=== PATIENT | female | born 1935 | race African-American/Black ===

== ENCOUNTER → 2018-02-25 | Outpatient (CLI) | payer OTHER ==
--- NOTE | 2018-02-25 09:33 | Diagnostic Imaging Report ---
PROCEDURE:US RETROPERITONEAL ( KIDNEY ). COMPARISON:Bilateral renal ultrasound 01/21/17. INDICATIONS:ACQUIRED CYST OF KIDNEY TECHNIQUE:Ultrasound examination was performed of the kidneys and bladder. FINDINGS: RIGHT KIDNEY: 8.9 cm, cortex 1.1 cm No echogenic calculi, hydronephrosis, or solid masses. LEFT KIDNEY: 9.1 cm, cortex 1.3 cm No echogenic calculi, hydronephrosis, or solid masses. Multiple simple appearing renal cysts are present: Right kidney, inferior/lateral, 1.2 x 1.0 x 1.2 cm, minimally increased Right kidney, inferior/lateral, 2.6 x 2 x 1.9, stable Left kidney, interpolar region, 1.5 x 1.1 cm, minimally increased Left kidney, superior pole, 1.7 x 1.4 x 1.8 cm, minimally decreased Bladder: Normal contour. Bilateral ureteral jets are present. CONCLUSION: No acute sonographic abnormality. Bilateral simple renal cysts, similar in appearance to prior study, accounting for differences in technique. DICTATED BY: RAMIRO GARZA M.D. ON 02/25/2018 AT 9:41 ELECTRONICALLY APPROVED BY: RAMIRO GARZA M.D. ON 02/25/2018 AT 9:41
== END ==
LOC: US 07:50
PROVIDERS: ATTEND Urology
DX: N28.1 Cyst of kidney, acquired (principal)
CPT/HCPCS: 76770

== ENCOUNTER → 2019-05-11 | Outpatient (CLI) | payer MEDICARE, OTHER ==
--- NOTE | 2019-05-11 12:17 | Diagnostic Imaging Report ---
EXAM: US RENAL RETROPERITONEAL COMP DATE: 05/11/2019 8:52 AM INDICATION: Cyst of kidney COMPARISON: Ultrasound from 02/25/2018 FINDINGS: The right kidney is at the lower limits of normal for size measuring 8.3 x 4.1 x 4.1 cm with cortical thickness of 1.5 cm. Cortical echogenicity is mildly increased. There are multiple simple cysts. The largest measures 2.5 x 2.0 x 2.2 cm and 1.9 x 1.1 x 1.5 cm. There is no evidence for solid renal mass, hydronephrosis, or shadowing calculi. The left kidney is at the lower limits of normal for size measuring 8.7 x 4.0 x 3.8 cm with cortical thickness of 1.3 cm. 2 cysts are identified within the left kidney measuring 2.5 x 2.4 x 1.9 cm and 1.4 x 0.9 x 1.4 cm. There is no evidence for solid renal mass, hydronephrosis, or shadowing calculi. The urinary bladder demonstrates no significant abnormalities. Bilateral ureteral jets are noted. IMPRESSION: 1. Bilateral simple renal cysts, the largest cyst within the left kidney measures slightly larger than the prior examination. 2. Increased renal cortical echogenicity which can be seen in the setting of medical renal disease. Signed by: Dr. Miguel Ford MD on 05/11/2019 12:14 PM
== END ==
LOC: US 08:39
PROVIDERS: ATTEND Urology
DX: N28.1 Cyst of kidney, acquired (principal)
CPT/HCPCS: 76770

== ENCOUNTER → 2019-12-06 | Outpatient (CLI) | payer MEDICARE, OTHER ==
--- NOTE | 2019-12-06 12:06 | Diagnostic Imaging Report ---
EXAM: Renal Ultrasound INDICATION: ^[id number] ^[id number] ^CYST OF KIDNEY COMPARISON: Renal ultrasound of 05/11/2019 TECHNIQUE: Transverse and longitudinal images of the kidneys and bladder were obtained. FINDINGS: Right Kidney: Length: 9.0 cm Appearance: Normal echogenicity. Collecting system: No hydronephrosis Stones: None Cyst/Mass: Again seen are multiple right renal simple cysts the largest of which measure 2.3 x 2.3 x 2.3 cm (2.5 x 2.0 x 2.2 cm previously) and 1.4 x 1.3 x 1.6 cm (1.9 x 1.1 x 1.5 cm previously). Left Kidney: Length: 9.2 cm Appearance: Normal echogenicity. Collecting system: No hydronephrosis Stones: None Cyst/Mass: Unchanged cysts measure up to 2.5 x 2.3 x 1.9 cm (previously 2.5 x 2.4 x 1.9 cm). Bladder: No mass or calculi. Bilateral ureteral jets visualized. Prevoid volume estimate of 56 cc. IMPRESSION: Unchanged bilateral simple renal cysts. No hydronephrosis or renal calculi. Signed by: Ysabel Epstein MD on 12/06/2019 12:03 PM
== END ==
LOC: US 09:46
PROVIDERS: ATTEND Urology
DX: N28.1 Cyst of kidney, acquired (principal); R31.21 Asymptomatic microscopic hematuria
CPT/HCPCS: 76770

== ENCOUNTER → 2021-01-03 | Outpatient (CLI) | payer MEDICARE, OTHER | LOC: US 11:21 | PROVIDERS: ATTEND Urology | DX: N18.9 Chronic kidney disease, unspecified (principal); N28.1 Cyst of kidney, acquired | CPT/HCPCS: 76770 ==